=== PATIENT | male | born 1960 | race American Indian/Alaskan Native ===

== ENCOUNTER 2017-11-29 14:36 | Inpatient (IN) | payer MEDICAID ==
[2017-11-29] MEDS ORDERED: ECOTRIN PO ONE (16:57)
[2017-11-29] MEDS ORDERED: NITRO-BID 2% TP ONE (16:57)
--- NOTE | 2017-11-29 16:59 | Emergency Department Report ---
HPI - General Chief Complaint: Chest Pain Time Seen by Provider: 11/29/17 16:46 - HPI HPI: Room 19 The patient is a 57-year-old male presenting with a chief complaint of chest pain. The patient states today at 13:50 while walking to the store he developed sharp substernal chest pain associated with shortness breath and diaphoresis. Patient denies nausea vomiting. The patient states he made it to the store had them call 911. Patient states he now has intermittent chest tightness. Patient denies fever. The patient states he was told he had a "heart attack" 8 months ago when he had a cardiac catheterization at the [facility] Location: Chest Duration: Onset at 13:50 Quality: Sharp Severity: Moderate Modifying factors: [see above] Context: [see above] Mode of transportation: [not driving] ED Past Medical Hx - Past Medical History Hx CVA: Yes Hx Heart Attack/AMI: Yes - Surgical History Past Surgical History?: No - Family History Family history: no significant - Social History Smoking Status: Current Every Day Smoker (1/4 pack per day) Substance Use Type: None (denies illicit drug use), Alcohol (occasional) - Medications Home Medications: Home Medications Medication Instructions Recorded Confirmed Last Taken Type Unobtainable 11/29/17 11/29/17 Unknown History ED Review of Systems ROS: Stated complaint: CHEST PAIN Other details as noted in HPI Constitutional: diaphoresis. 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 [] HEENT: Normocephalic. Atraumatic. Extraocular motions are intact. Patient has moist mucous membranes. NECK: Supple. Trachea midline CHEST/LUNGS: Clear to auscultation. There is no respiratory distress noted. HEART/CARDIOVASCULAR: Regular. There is no tachycardia. There is no gallop rub or murmur. ABDOMEN: Abdomen is soft, nontender. Patient has normal bowel sounds. There is no abdominal distention. SKIN: There is no rash. There is no edema. There is no diaphoresis. NEURO: The patient is awake, alert, and oriented. The patient is cooperative. The patient has normal speech MUSCULOSKELETAL: There is no evidence of acute injury. ED Course Vital Signs 11/29/17 14:54 Temperature 98.8 F Pulse Rate 86 Respiratory 20 Rate Blood Pressure 149/98 O2 Sat by Pulse 96 Oximetry ED Medical Decision Making - Lab Data Result diagrams: 11/29/17 16:33 11/29/17 16:33 Laboratory Tests 11/29/17 11/29/17 11/29/17 16:33 16:33 16:33 WBC 7.3 RBC 4.46 Hgb 12.2 Hct 37.5 MCV 84 MCH 27 L MCHC 33 RDW 16.5 H Plt Count 240 Lymph % (Auto) 23.5 [place] % (Auto) 10.0 H Eos % (Auto) 0.8 Baso % (Auto) 0.4 Lymph # 1.7 [place] # 0.7 Eos # 0.1 Baso # 0.0 Seg Neutrophils % 65.3 Seg Neutrophils # 4.7 Sodium 139 Potassium 4.2 Chloride 102.9 Carbon Dioxide 22 Anion Gap 18 BUN 18 Creatinine 0.7 L Estimated GFR > 60 BUN/Creatinine Ratio 26 Glucose 82 Calcium 9.4 Troponin T < 0.010 < 0.010 - EKG Data -: EKG Interpreted by Me EKG shows normal: sinus rhythm Rate: normal - EKG Data When compared to previous EKG there are: previous EKG unavailable Interpretation: nonspecific ST-T wave matthew (T-wave inversion lead 3) - Radiology Data Radiology results: image reviewed (chest x-ray) interpreted by me: Chest x-ray-no focal infiltrates, no pneumothorax - Differential Diagnosis ACS, GERD, pericarditis Critical care attestation.: If time is entered above; I have spent that time in minutes in the direct care of this critically ill patient, excluding procedure time. ED Disposition Clinical Impression: Chest pain Disposition: OP ADMIT IP TO THIS HOSP Is pt being admited?: Yes Does the pt Need Aspirin: Yes Condition: Fair Instructions: Chest Pain (ED) Referrals: PRIMARY CARE,MD [Primary Care Provider] - 3-5 Days Time of Disposition: 17:41 (hospitalist paged (Dr Burroughs))
[2017-11-29 17:03] LABS: Basophils % (Auto) 0.4 % (0.0-1.8); Eosinophils # (Auto) 0.1 K/mm3 (0.0-0.4); Eosinophils % (Auto) 0.8 % (0.0-4.3); Hematocrit 37.5 % (35.5-45.6); Hemoglobin 12.2 gm/dl (11.8-15.2); Lymphocytes # (Auto) 1.7 K/mm3 (1.2-5.4); Lymphocytes % (Auto) 23.5 % (13.4-35.0); Mean Corpuscular HGB Conc 33 % (32-34); Mean Corpuscular Hemoglobin 27 pg (28-32); Mean Corpuscular Volume 84 fl (84-94); Monocytes # (Auto) 0.7 K/mm3 (0.0-0.8); Platelet Count 240 K/mm3 (140-440); Red Blood Count 4.46 M/mm3 (3.65-5.03); Red Cell Distribution Width 16.5 % (13.2-15.2)
[2017-11-29 17:13] LABS: BUN/Creatinine Ratio 26; Blood Urea Nitrogen 18 mg/dL (9-20); Calcium 9.4 mg/dL (8.4-10.2); Hemolysis Index 5
[2017-11-29] MEDS ORDERED: ASPIRIN PO ONE (17:43)
--- NOTE | 2017-11-29 18:01 | XRay Report ---
FINAL REPORT EXAM: XR CHEST 1V AP HISTORY: chest pain TECHNIQUE: Single, portable chest x-ray. PRIORS: None. FINDINGS: Cardiac and mediastinal silhouette within normal limits. Lungs are hypoinflated, with probable mild bibasilar atelectasis versus scarring. No significant vascular congestion, focal consolidation or apparent pneumothorax. Degenerative change in the thoracic spine. IMPRESSION: 1. No acute findings.
[2017-11-29] MEDS ORDERED: ZOFRAN IV PRN (23:01)
[2017-11-29] MEDS ORDERED: MORPHINE IV PRN (23:01)
[2017-11-30] MEDS: NITRO-BID 2% TP SCH ×5 (00:51→18:31)
[2017-11-30 01:27] LABS: Creatine Kinase MB < 1.0 ng/mL (0.0-4.0)
[2017-11-30 07:28] LABS: Creatine Kinase MB < 1.0 ng/mL (0.0-4.0)
--- NOTE | 2017-11-30 07:33 | History and Physical Report ---
CHIEF COMPLAINT: Chest pain. HISTORY OF PRESENT ILLNESS: The patient is a 57-year-old male who said he started having chest pain few hours prior to presentation. He described the pain as sharp, substernal in location associated with shortness of breath and diaphoresis. There was a history of nausea, but no vomiting.There was no history of fever and no history of chills. The patient said that he had chest pain about 8 months ago and was told after he had cardiac catheterization that he had a heart attack at [facility]. PAST MEDICAL HISTORY: Pertinent for cerebrovascular accident, coronary artery disease, status post myocardial infarction. PAST SURGICAL HISTORY: Unremarkable. FAMILY HISTORY: Noncontributory. SOCIAL HISTORY: The patient smokes cigarettes, drinks alcohol and does not use illicit drugs. MEDICATIONS: The patient's home medications are not known. ALLERGIES: THE PATIENT IS ALLERGIC TO PENICILLIN. REVIEW OF SYSTEMS: CONSTITUTIONAL: There is no fever or chills. Diaphoresis present. HEENT: There is headache, but no sore throat. CARDIOVASCULAR: Chest pain is present. No orthopnea. RESPIRATORY: Shortness of breath is present. No cough. GASTROINTESTINAL: There is nausea, but no vomiting, no abdominal pain, diarrhea or constipation. NEUROLOGICAL: There is no numbness, no dizziness, no altered mental status. MUSCULOSKELETAL: There is no joint pain or swelling. DERMATOLOGICAL: There is no skin rash or itching. GENITOURINARY: There is no dysuria, hematuria, or flank pain. Rest of system review is normal. PHYSICAL EXAMINATION: GENERAL: At the time of exam, the patient was found to be alert, oriented x 3 and not in acute distress. VITAL SIGNS: At the initial time of presentation show temperature of 98.8 degrees Fahrenheit, pulse of 86, respirations 20, blood pressure 149/98, O2 sat of 96% on room air. HEENT: Shows pupils to be equal, round, reactive to light and accommodation. Extraocular muscles are intact. NECK: Supple with no JVD or carotid bruit. CARDIOVASCULAR: Showed normal first and second heart sounds with no gallops or murmurs. RESPIRATORY: Show good air entry on both sides of the lung with no abnormal breath sounds. GASTROINTESTINAL: Show abdomen to be full, soft, nontender with no organomegaly or rigidity. NEUROLOGIC: Shows no focal deficit. MUSCULOSKELETAL: Show no joint swelling or tenderness. DERMATOLOGICAL: Shows no skin rash. GENITOURINARY: Showing no costovertebral angle tenderness. PERTINENT LABORATORY AND IMAGING STUDIES: The patient had chest x-ray done that shows no active cardiopulmonary lesions. The patient's lab tests, CBC with normal white count, normal hemoglobin and normal hematocrit with normal platelet count. CBC differential shows high monocyte count of 10%, otherwise, unremarkable. The patient's chemistry was unremarkable. The patient's troponin levels came back normal. DIAGNOSIS: Chest pain, rule out myocardial infarction. PLAN: 1. The patient will be admitted to telemetry. 2. The patient will have cardiac enzymes involving troponin, total CK, and CK-MB. Check q 6 hours x 2 more levels. 3. The patient will be n.p.o. and will have Lexiscan stress test this morning. 4. The patient will be on aspirin 325 mg by mouth daily and will be on heparin 5000 units subq every 12 hours for DVT prophylaxis. 5. The patient will be on morphine 2 mg IV every 5 minutes as needed for chest pain and will be on nitro paste half inch to anterior chest wall q.i.d. The patient will also be on IV Zofran 4 mg every 8 hours for nausea and vomiting and will be on Tylenol 650 mg by mouth every 4 hours as needed for fever and headache. 6. The patient will be on oxygen by nasal cannula at 2 liters per minute and will remain n.p.o. until stress test is completed. JOB# [id number] OCN/NTS MARANDA
--- NOTE | 2017-11-30 09:06 | Event Note ---
Date: 11/30/17 Patient was undergoing resting scan in preparation for stress test, and reported to be transiently, poorly responsive and tremulous while under the camera. Test was stopped, and vitals checked: BP 140 systolic, NSR 68. Immediate ECG was normal-no ischemic changes. Stat blood glucose was 83. The patient is now alert and oriented X3, able to move all 4 extremeties, but remains somewhat tremulous and states that he is unable to turn his head to the right. Recommendation: No acute cardiac issues, we will cancel stress test. Patient is signed out to the internal medicine service, Dr Long for further management.
--- NOTE | 2017-11-30 09:14 | Cat Scan Report ---
CT head without contrast: Altered mental status. Axial images demonstrates a focal area diminished attenuation just lateral to the right caudate nucleus probably involving the anterior limb of the internal capsule. A faint area of decreased attenuation is also suspected on the left side involving the internal capsule anteriorly. No other focal or generalized findings. No evidence of hemorrhage and no mass effect. The ventricles are normal in size and contour. No extracerebral collections. The visualized bony structures are unremarkable. There is mucoperiosteal thickening involving the visualized sections of the right maxillary sinus. No prior exam for comparison. Impression: 1. Ischemic infarct in the right caudate nucleus/internal capsule of indeterminate age. 2. Possible lacunar infarct of the left anterior internal capsule.
[2017-11-30] MEDS: ASPIRIN PO SCH (10:45)
[2017-11-30] MEDS: HEPARIN SUB-Q SCH ×2 (10:45→22:16)
--- NOTE | 2017-11-30 12:02 | Event Note ---
Date: 11/30/17 Patient seen and examined Code med called while getting stress test this am Patient noted to have shaking and some sort of speech difficulty per RN. VItals erre stable. Stat CT head showed right Internal capasule and caudate nucleus ischemia. No changes on EKG. Teleneurology was consulted, and did not recommended tPA. Patient had a stroke 8 months ago and per neurology results on CT head is for the chronic/old stroke. Will do Stroke work up with MRI/MRA, 2d echo, neuro consult. ordered Pt/OT/ST. Physical exam: GENERAL: well-developed and well-nourished AAM lying on bed appeared to be in no discomfort. HEENT: Normocephalic. Atraumatic. No conjunctival congestion or icterus. Patient has moist mucous membranes. NECK: Supple. Trachea midline. CHEST/LUNGS: Clear to auscultated bilaterally, breathing nonlabored. No wheezes crackles or rhonchi. HEART/CARDIOVASCULAR: Regular in rate and rhythm. S1 and S2 positive. ABDOMEN: Abdomen is soft, nontender. Patient has normal bowel sounds. SKIN: There is no rash. Warm and dry. NEURO: No focal motor deficit. Follows command. MUSCULOSKELETAL: No joint effusion or tenderness. EXTRIMITY: No edema, no cyanosis or clubbing. PSYCH: Cooperative. CC time 45 minutes
--- NOTE | 2017-11-30 15:18 | Magnetic Resonance Report ---
FINAL REPORT EXAM: MR BRAIN WO CON HISTORY: cva TECHNIQUE: Multiplanar MRI of the brain. No contrast administered. PRIORS: None. FINDINGS: Brain volume is normal for age. Probable old lacunar infarct change in right frontal periventricular deep white matter of rojas radiata. Possible prominent perivascular space or old lacune in the left anterior commissure region. No acute infarct seen on diffusion-weighted imaging. No parenchymal mass, mass-effect, hemorrhage, midline shift or hydrocephalus. No pathologic extra-axial fluid collection. No pineal region or sellar masses. No cerebellar tonsillar herniation. IMPRESSION: 1. No acute intracranial findings. 2. Chronic ischemic changes suspected.
--- NOTE | 2017-11-30 15:23 | Magnetic Resonance Report ---
FINAL REPORT EXAM: MR MRA/MRV HEAD WO CON HISTORY: cva TECHNIQUE: Multiplanar MRA of [place]. No contrast administered. PRIORS: None. FINDINGS: Normal flow related enhancement in the basilar and bilateral internal carotid arteries and their main intracranial branches. No abnormal aneurysmal dilatation, focal signal dropout or signal void to suggest significant stenosis or apparent occlusion. Left P-comm artery evident. IMPRESSION: 1. No significant findings.
--- NOTE | 2017-11-30 15:31 | Magnetic Resonance Report ---
FINAL REPORT EXAM: MR MRA/MRV NECK WO CON HISTORY: cva TECHNIQUE: Multiplanar MRA of carotid bifurcations. No contrast administered. PRIORS: None. FINDINGS: Normal flow related enhancement in the bilateral common, internal and external carotid arteries. Left proximal ICA tortuous, with short segment of moderate signal dropout may be artifactual due to tortuosity versus plaque/narrowing. No abnormal aneurysmal dilatation or other focal signal dropout or signal void to suggest significant stenosis. Carotid bifurcations have normal contour without significant plaque formation. Vertebral arteries appear patent, with left-sided dominance. IMPRESSION: 1. Possible artifact versus short segment of moderate narrowing in left proximal ICA approximating 50-70%. Correlation with carotid Doppler duplex ultrasound may help in further evaluation, as clinically indicated. 2. Otherwise, less than 50% carotid stenosis by NASCET criteria.
[2017-11-30] MEDS: TYLENOL PO PRN (18:45)
--- NOTE | 2017-12-01 00:13 | Consultation ---
REFERRING PHYSICIAN: Dr. Long. REASON FOR CONSULTATION: Possible stroke. HISTORY OF PRESENT ILLNESS: The patient is a 57-year-old black male who complained of chest pain when he presented to the Emergency Room. He was walking to the store when he developed severe substernal chest pain with shortness of breath and he had diaphoresis also. Then, when he was in the store, they called 911 and ambulance. He was then brought in here. He apparently had a heart attack 8 months ago when he had a cardiac catheterization at [facility]. The patient is not a very good historian. He mentioned that he has weakness also on both arms and both legs and he sort of feel imbalance. He did not mention this to the Emergency Room doctor and also to his primary hospitalist. The patient denies any problem with speech, but she felt she is a little bit dizzy. No problem with vision. No lateralizing weakness or numbness. PAST MEDICAL HISTORY: The patient had a stroke before, but she could not tell the detail, coronary artery disease, possible myocardial infarction. PAST SURGICAL HISTORY: None. FAMILY HISTORY: None. SOCIAL HISTORY: The patient smokes cigarettes at least 1, amount not known. Drinks alcohol at least 6 packs in 1 week. No illegal drugs. ALLERGIES: He has allergic to PENICILLIN. MEDICATIONS: He does not know his home medication. PHYSICAL EXAMINATION: GENERAL: Revealed a well-developed, well-nourished, very pleasant male who is in no acute distress. He is very pleasant. No intracranial or intraorbital bruit. NECK: Supple. No carotid bruit. HEART: Regular rate and rhythm. LUNGS: Clear. ABDOMEN: Soft. EXTREMITIES: Appeared externally normal. NEUROLOGIC: Revealed the patient is awake and alert. Mental status appeared normal. Cranial nerves unremarkable. Motor examination, he has good strength in the upper and lower extremities. She has good sensation. Coordination is slow, but intact. Reflexes are symmetrical. No Babinski. The patient was evaluated by Teleneurology for possible stroke, but no acute finding, chronic ischemic changes. Apparently, no tPA was given. The patient is a thrombolysis candidate. The teleneurology did not recommend urgent CT angiogram. There is another piece of history in that while the patient was getting stress test this morning, she had an episode of shaking and speech difficulty. A stat CT scan of the head showed right internal capsule and caudate nucleus ischemia. No changes in the EKG. INITIAL CLINICAL IMPRESSION: The symptoms showed the patient is not compatible with a cerebrovascular accident, although she has history of stroke before. There is no lateralizing component. It is possible that he may have a silent stroke. This shaking in the sort of speech difficulty is probably anxiety and at the most, it could be some type of a transient ischemic attack. PLAN AND RECOMMENDATIONS: As discussed with Dr. Long, we will do an MRI of the brain and MRA, initially 2D echo, carotid ultrasound and add Plavix to the aspirin, especially with the previous history of stroke and myocardial infarction. 60 minutes involved in obtaining history and physical examination and more than 50% in coordination of care and counseling. I will not be available to follow this patient because my locum terms is over. The next neurologist will be following up the patient. JOB# [id number] MIKE/HUSSAIN
[2017-12-01] MEDS: HEPARIN SUB-Q SCH ×2 (10:13→22:15)
[2017-12-01] MEDS: ASPIRIN PO SCH (10:13)
[2017-12-01] MEDS: NITRO-BID 2% TP SCH ×3 (10:21→17:28)
--- NOTE | 2017-12-01 16:45 | Progress Note ---
Assessment and Plan Assessment and plan: 57-year-old -Mongolian male with past medical history significant for CVA , CAD presented to the emergency department for chest pain. Yesterday patient was going for stress test and code met was called, and stress test was cancelled. Stroke workup was done and negative. Patient didn't have any chest pain. Neurology consult appreciated. Patient will be observed overnight and if stable will be discharged tomorrow morning. History Interval history: Patient was seen and evaluated this morning, chest pain sided. No focal weakness. Hospitalist Physical - Physical exam Narrative exam: Not in cardiopulmonary distress. The patient appeared well nourished and normally developed. Vital signs as documented. Head exam is unremarkable. No scleral icterus . Neck is without jugular venous distension, thyromegaly, or carotid bruits. Lungs are clear to auscultation. Cardiac exam reveals regular rate and Rhythm. First and second heart sounds normal. No murmurs, rubs or gallops. Abdominal exam reveals normal bowel sounds, no masses, no organomegaly and no aortic enlargement. Extremities are nonedematous and both femoral and pedal pulses are normal. 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 No focal weakness. - Constitutional Vitals: Temp Pulse Resp BP Pulse Ox 98.0 F 90 20 123/78 95 11/30/17 15:47 12/01/17 13:51 11/30/17 18:45 12/01/17 13:51 12/01/17 09:20 Results - Labs CBC & Chem 7: 11/29/17 16:33 11/29/17 16:33 Labs: Laboratory Last Values WBC 7.3 K/mm3 (4.5-11.0) 11/29/17 16:33 RBC 4.46 M/mm3 (3.65-5.03) 11/29/17 16:33 Hgb 12.2 gm/dl (11.8-15.2) 11/29/17 16:33 Hct 37.5 % (35.5-45.6) 11/29/17 16:33 MCV 84 fl (84-94) 11/29/17 16:33 MCH 27 pg (28-32) L 11/29/17 16:33 MCHC 33 % (32-34) 11/29/17 16:33 RDW 16.5 % (13.2-15.2) H 11/29/17 16:33 Plt Count 240 K/mm3 (140-440) 11/29/17 16:33 Lymph % (Auto) 23.5 % (13.4-35.0) 11/29/17 16:33 [place] % (Auto) 10.0 % (0.0-7.3) H 11/29/17 16:33 Eos % (Auto) 0.8 % (0.0-4.3) 11/29/17 16:33 Baso % (Auto) 0.4 % (0.0-1.8) 11/29/17 16:33 Lymph # 1.7 K/mm3 (1.2-5.4) 11/29/17 16:33 [place] # 0.7 K/mm3 (0.0-0.8) 11/29/17 16:33 Eos # 0.1 K/mm3 (0.0-0.4) 11/29/17 16:33 Baso # 0.0 K/mm3 (0.0-0.1) 11/29/17 16:33 Seg Neutrophils % 65.3 % (40.0-70.0) 11/29/17 16:33 Seg Neutrophils # 4.7 K/mm3 (1.8-7.7) 11/29/17 16:33 Sodium 139 mmol/L (137-145) 11/29/17 16:33 Potassium 4.2 mmol/L (3.6-5.0) 11/29/17 16:33 Chloride 102.9 mmol/L (98-107) 11/29/17 16:33 Carbon Dioxide 22 mmol/L (22-30) 11/29/17 16:33 Anion Gap 18 mmol/L 11/29/17 16:33 BUN 18 mg/dL (9-20) 11/29/17 16:33 Creatinine 0.7 mg/dL (0.8-1.5) L 11/29/17 16:33 Estimated GFR > 60 ml/min 11/29/17 16:33 BUN/Creatinine Ratio 26 % 11/29/17 16:33 Glucose 82 mg/dL (75-100) 11/29/17 16:33 POC Glucose 83 (70-105) 11/30/17 08:53 Calcium 9.4 mg/dL (8.4-10.2) 11/29/17 16:33 Total Creatine Kinase 87 units/L (55-170) 11/30/17 06:33 CK-MB (CK-2) < 1.0 ng/mL (0.0-4.0) 11/30/17 06:33 CK-MB (CK-2) Rel Index 1.1 (0-4) 11/30/17 06:33 Troponin T < 0.010 ng/mL (0.00-0.029) 11/30/17 06:33
[2017-12-01] MEDS: TYLENOL PO PRN ×2 (17:00→22:14)
[2017-12-02] MEDS: NITRO-BID 2% TP SCH ×3 (06:38→17:32)
[2017-12-02 09:59] LABS: BUN/Creatinine Ratio 20; Blood Urea Nitrogen 16 mg/dL (9-20); Calcium 9.3 mg/dL (8.4-10.2); Hemolysis Index 6
[2017-12-02] MEDS: ASPIRIN PO SCH (11:00)
[2017-12-02] MEDS: HEPARIN SUB-Q SCH ×2 (11:00→22:00)
--- NOTE | 2017-12-02 13:53 | Progress Note ---
Assessment and Plan Assessment and plan: 57-year-old -[place] male with past medical history significant for CVA , CAD presented to the emergency department for chest pain. patient went for stress test and code met was called, and stress test was cancelled. Stroke workup was done and negative. Patient didn't have any chest pain. Neurology consult appreciated. Patient is complaining dizziness. paossible DC tomorrow. History Interval history: Patient was seen and evaluated this morning, chest pain sided. The patient is complaining dizziness. Hospitalist Physical - Physical exam Narrative exam: Not in cardiopulmonary distress. The patient appeared well nourished and normally developed. Vital signs as documented. Head exam is unremarkable. No scleral icterus . Neck is without jugular venous distension, thyromegaly, or carotid bruits. Lungs are clear to auscultation. Cardiac exam reveals regular rate and Rhythm. First and second heart sounds normal. No murmurs, rubs or gallops. Abdominal exam reveals normal bowel sounds, no masses, no organomegaly and no aortic enlargement. Extremities are nonedematous and both femoral and pedal pulses are normal. 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 No focal weakness. - Constitutional Vitals: Temp Pulse Resp BP Pulse Ox 97.7 F 81 18 128/91 96 12/02/17 08:28 12/02/17 10:00 12/02/17 10:00 12/02/17 08:28 12/01/17 17:00 Results - Labs CBC & Chem 7: 11/29/17 16:33 12/02/17 08:42 Labs: Laboratory Last Values WBC 7.3 K/mm3 (4.5-11.0) 11/29/17 16:33 RBC 4.46 M/mm3 (3.65-5.03) 11/29/17 16:33 Hgb 12.2 gm/dl (11.8-15.2) 11/29/17 16:33 Hct 37.5 % (35.5-45.6) 11/29/17 16:33 MCV 84 fl (84-94) 11/29/17 16:33 MCH 27 pg (28-32) L 11/29/17 16:33 MCHC 33 % (32-34) 11/29/17 16:33 RDW 16.5 % (13.2-15.2) H 11/29/17 16:33 Plt Count 240 K/mm3 (140-440) 11/29/17 16:33 Lymph % (Auto) 23.5 % (13.4-35.0) 11/29/17 16:33 [place] % (Auto) 10.0 % (0.0-7.3) H 11/29/17 16:33 Eos % (Auto) 0.8 % (0.0-4.3) 11/29/17 16:33 Baso % (Auto) 0.4 % (0.0-1.8) 11/29/17 16:33 Lymph # 1.7 K/mm3 (1.2-5.4) 11/29/17 16:33 [place] # 0.7 K/mm3 (0.0-0.8) 11/29/17 16:33 Eos # 0.1 K/mm3 (0.0-0.4) 11/29/17 16:33 Baso # 0.0 K/mm3 (0.0-0.1) 11/29/17 16:33 Seg Neutrophils % 65.3 % (40.0-70.0) 11/29/17 16:33 Seg Neutrophils # 4.7 K/mm3 (1.8-7.7) 11/29/17 16:33 Sodium 140 mmol/L (137-145) 12/02/17 08:42 Potassium 4.5 mmol/L (3.6-5.0) 12/02/17 08:42 Chloride 103.6 mmol/L (98-107) 12/02/17 08:42 Carbon Dioxide 23 mmol/L (22-30) 12/02/17 08:42 Anion Gap 18 mmol/L 12/02/17 08:42 BUN 16 mg/dL (9-20) 12/02/17 08:42 Creatinine 0.8 mg/dL (0.8-1.5) 12/02/17 08:42 Estimated GFR > 60 ml/min 12/02/17 08:42 BUN/Creatinine Ratio 20 % 12/02/17 08:42 Glucose 87 mg/dL (75-100) 12/02/17 08:42 POC Glucose 83 (70-105) 11/30/17 08:53 Calcium 9.3 mg/dL (8.4-10.2) 12/02/17 08:42 Total Creatine Kinase 87 units/L (55-170) 11/30/17 06:33 CK-MB (CK-2) < 1.0 ng/mL (0.0-4.0) 11/30/17 06:33 CK-MB (CK-2) Rel Index 1.1 (0-4) 11/30/17 06:33 Troponin T < 0.010 ng/mL (0.00-0.029) 11/30/17 06:33
[2017-12-03] MEDS: NITRO-BID 2% TP SCH ×3 (06:51→13:35)
[2017-12-03 08:04] LABS: BUN/Creatinine Ratio 20; Blood Urea Nitrogen 16 mg/dL (9-20); Calcium 9.5 mg/dL (8.4-10.2); Hemolysis Index 5
[2017-12-03] MEDS: ASPIRIN PO SCH (09:33)
[2017-12-03] MEDS: HEPARIN SUB-Q SCH ×2 (09:34→22:50)
--- NOTE | 2017-12-03 11:23 | Discharge Summary ---
Providers - Providers Date of Admission: 11/29/17 22:55 Date of discharge: 12/04/17 Attending physician: MANDIE OWENS MD 11/30/17 10:50 Consult to Physician [CONS] Routine Comment: Consulting Provider: MAYELA ARAUJO Physician Instructions: Reason For Exam: CVA Physical Therapy Evaluation and Treat [CONS] Routine Comment: Reason For Exam: cva 11/30/17 10:51 Speech Therapy Evaluation and Treat [CONS] Routine Reason For Exam: possible aspiration Primary care physician: LITERACY CONSULTANT Hospitalization Reason for admission: Chest pain Condition: Fair Pertinent studies: CT, MRI/MRA head negative for acute change. MRA neck normal, ECHO and carotid doppler all normal. Hospital course: 57-year-old -[place] male with past medical history significant for CVA , CAD presented to the emergency department for chest pain. patient went for stress test and code met was called, and stress test was cancelled. patient's chest pain subsided. serial troponin were negative. ECG NSR. Stroke workup was done and negative. Patient didn't have any chest pain. Neurology consult appreciated. Patient was hemodynamically stable at the time of discharge. patient discharged back to [facility]. Disposition: DC-01 TO HOME OR SELFCARE Time spent for discharge: 32 minutes - Discharge Diagnoses (1) Chest pain Status: Acute Core Measure Documentation - Palliative Care Palliative Care/ Comfort Measures: Not Applicable - Core Measures Any of the following diagnoses?: history only (CVA) Exam - Physical Exam Narrative exam: Not in cardiopulmonary distress. The patient appeared well nourished and normally developed. Vital signs as documented. Head exam is unremarkable. No scleral icterus . Neck is without jugular venous distension, thyromegaly, or carotid bruits. Lungs are clear to auscultation. Cardiac exam reveals regular rate and Rhythm. First and second heart sounds normal. No murmurs, rubs or gallops. Abdominal exam reveals normal bowel sounds, no masses, no organomegaly and no aortic enlargement. Extremities are nonedematous and both femoral and pedal pulses are normal. CAREER REPRESENTATIVE: Alert and oriented 3. No focal weakness. - Constitutional Vitals: Temp Pulse Resp BP Pulse Ox 97.6 F 80 18 120/91 97 12/03/17 08:06 12/03/17 08:06 12/03/17 08:06 12/03/17 08:06 12/03/17 08:06 Plan Activity: no restrictions Weight Bearing Status: Full Weight Bearing Diet: low salt Additional Instructions: [facility] Follow up with: PRIMARY CARE, [Primary Care Provider] - 3-5 Days Prescriptions: AtorvaSTATin [Lipitor] 40 mg PO QHS #30 tablet Aspirin [Aspirin TAB] 325 mg PO QDAY #30 tablet
[2017-12-04] MEDS: NITRO-BID 2% TP SCH ×3 (06:00→11:19)
[2017-12-04 08:42] VITALS: BP 137/91
--- NOTE | 2017-12-04 09:15 | Query- Chest Pain ---
Milly Collins Date:___12/04/2017 Sharifa/GURWINDER:___Milena/Ludy Phone#:__[phone] Exercise your independent professional judgment when responding to query. Questions asked do not imply a particular answer is desired or expected. We greatly appreciate your clarification on this issue. Clinical Documentation States: 57 Year old male was admitted on 11/29/2017 for chest pain. The Discharge summary stated "- Discharge Diagnoses (1) Chest pain Status: Acute." Please document the etiology of Chest Pain: [ ] Myocardial Infarction [ ] Pneumonia [ ] Mediastinitis [ x] Costochondritis [ ] Pulmonary Embolism [ ] Coronary Artery Disease [ ] GERD [ ] Other: [ ] Comment/Explanation: Present on Admission: [x ] Yes (Y) [ ] Clinically undeterminable (W) [ ] No(N) Please document response in your Progress Notes and/or Discharge Summary and indicate if the condition was present on admission. MARANDA
--- NOTE | 2017-12-04 09:34 | Progress Note ---
Assessment and Plan Assessment and plan: 57-year-old -Citizen Of [place] male with past medical history significant for CVA , CAD presented to the emergency department for chest pain. patient went for stress test and code met was called, and stress test was cancelled. Stroke workup was done and negative. Patient didn't have any chest pain. Neurology consult appreciated. Patient is complaining dizziness. possible DC tomorrow. - Patient Problems (1) Chest pain Current Visit: Yes Status: Acute History Interval history: Patient was seen and evaluated this morning, chest pain subsided. Patient didn' t have any complaints. Hospitalist Physical - Physical exam Narrative exam: Not in cardiopulmonary distress. The patient appeared well nourished and normally developed. Vital signs as documented. Head exam is unremarkable. No scleral icterus . Neck is without jugular venous distension, thyromegaly, or carotid bruits. Lungs are clear to auscultation. Cardiac exam reveals regular rate and Rhythm. First and second heart sounds normal. No murmurs, rubs or gallops. Abdominal exam reveals normal bowel sounds, no masses, no organomegaly and no aortic enlargement. Extremities are nonedematous and both femoral and pedal pulses are normal. MACHINE LOADER: Alert and oriented 3. No focal weakness. - Constitutional Vitals: Temp Pulse Resp BP Pulse Ox 98.4 F 86 18 137/91 96 12/04/17 08:10 12/04/17 08:10 12/04/17 08:10 12/04/17 08:10 12/04/17 08:10 Results - Labs CBC & Chem 7: 11/29/17 16:33 12/03/17 07:19 Labs: Laboratory Last Values WBC 7.3 K/mm3 (4.5-11.0) 11/29/17 16:33 RBC 4.46 M/mm3 (3.65-5.03) 11/29/17 16:33 Hgb 12.2 gm/dl (11.8-15.2) 11/29/17 16:33 Hct 37.5 % (35.5-45.6) 11/29/17 16:33 MCV 84 fl (84-94) 11/29/17 16:33 MCH 27 pg (28-32) L 11/29/17 16:33 MCHC 33 % (32-34) 11/29/17 16:33 RDW 16.5 % (13.2-15.2) H 11/29/17 16:33 Plt Count 240 K/mm3 (140-440) 11/29/17 16:33 Lymph % (Auto) 23.5 % (13.4-35.0) 11/29/17 16:33 [place] % (Auto) 10.0 % (0.0-7.3) H 11/29/17 16:33 Eos % (Auto) 0.8 % (0.0-4.3) 11/29/17 16:33 Baso % (Auto) 0.4 % (0.0-1.8) 11/29/17 16:33 Lymph # 1.7 K/mm3 (1.2-5.4) 11/29/17 16:33 [place] # 0.7 K/mm3 (0.0-0.8) 11/29/17 16:33 Eos # 0.1 K/mm3 (0.0-0.4) 11/29/17 16:33 Baso # 0.0 K/mm3 (0.0-0.1) 11/29/17 16:33 Seg Neutrophils % 65.3 % (40.0-70.0) 11/29/17 16:33 Seg Neutrophils # 4.7 K/mm3 (1.8-7.7) 11/29/17 16:33 Sodium 138 mmol/L (137-145) 12/03/17 07:19 Potassium 4.2 mmol/L (3.6-5.0) 12/03/17 07:19 Chloride 99.5 mmol/L (98-107) 12/03/17 07:19 Carbon Dioxide 22 mmol/L (22-30) 12/03/17 07:19 Anion Gap 21 mmol/L 12/03/17 07:19 BUN 16 mg/dL (9-20) 12/03/17 07:19 Creatinine 0.8 mg/dL (0.8-1.5) 12/03/17 07:19 Estimated GFR > 60 ml/min 12/03/17 07:19 BUN/Creatinine Ratio 20 % 12/03/17 07:19 Glucose 91 mg/dL (75-100) 12/03/17 07:19 POC Glucose 83 (70-105) 11/30/17 08:53 Calcium 9.5 mg/dL (8.4-10.2) 12/03/17 07:19 Total Creatine Kinase 87 units/L (55-170) 11/30/17 06:33 CK-MB (CK-2) < 1.0 ng/mL (0.0-4.0) 11/30/17 06:33 CK-MB (CK-2) Rel Index 1.1 (0-4) 11/30/17 06:33 Troponin T < 0.010 ng/mL (0.00-0.029) 11/30/17 06:33
[2017-12-04] MEDS: ASPIRIN PO SCH (11:08)
[2017-12-04] MEDS: HEPARIN SUB-Q SCH (11:09)
== END 2017-12-04 13:05 | disposition home or self-care (01) | DRG 206 ==
LOC: ED 14:36 → 4A 22:55
PROVIDERS: ADMIT Internal Medicine; ATTEND Internal Medicine
DX: M94.0 Chondrocostal junction syndrome [Tietze] (principal); I25.10 Atherosclerotic heart disease of native coronary artery without angina pectoris; F17.210 Nicotine dependence, cigarettes, uncomplicated; Z86.73 Personal history of transient ischemic attack (TIA), and cerebral infarction without residual deficits; I25.2 Old myocardial infarction; Z72.89 Other problems related to lifestyle; Z88.0 Allergy status to penicillin
CPT/HCPCS: 36415; 70450; 70544; 70547; 70551; 71045; 80048; 82550; 82553; 82962; 84484; 85025; 93005; 93010; 93306; A9270-GY; J1644; J2270